=== PATIENT | female | born 1985 | race Two or more races ===

== ENCOUNTER 2025-01-15 05:41 | Day surgery (SDC) | payer OTHER ==
[2025-01-13 12:05] VITALS: BP 133/87
[~2025-01-15] VITALS: Ht 157.5 cm; Wt 63.5 kg
[~2025-01-15 05:41] MED LIST: AMOX1TAB5 PO; CATAFLAM; MAXALT10 MG PO; ZYRTEC10 M3 PO
[2025-01-15] MEDS ORDERED: BUPIVACAINE HCL/PF 0.25% 30ML VIAL InF ONE (11:00)
[2025-01-15] MEDS ORDERED: POVIDONE-IODINE SCRUB 118 ML BOTT TOP ONE (11:00)
[2025-01-15] MEDS ORDERED: CEFAZOLIN SODIUM 1,000 MG VIAL IV ONE (11:00)
[2025-01-15] MEDS ORDERED: POVIDONE-IODINE 118 ML BOTT TOP ONE ×3 (11:00)
[2025-01-15] MEDS ORDERED: CLINDAMYCIN PHOSPHATE 150 MG/ML (900mg) IV ONE (11:00)
[2025-01-15 13:08] LABS: COL ADP 93 SECONDS (56-102); COL EPI 146 SECONDS (82-175)
[2025-01-15] MEDS ORDERED: MORPHINE SULFATE 4 MG/ML VIAL IV ONE ×2 (15:40→16:10)
== END 2025-01-15 17:25 | disposition home or self-care (01) ==
LOC: CIR.AMB 05:41
PROVIDERS: ATTEND Surgery
DX: D05.11 Intraductal carcinoma in situ of right breast (principal); R59.0 Localized enlarged lymph nodes; N65.1 Disproportion of reconstructed breast; D48.62 Neoplasm of uncertain behavior of left breast; N60.82 Other benign mammary dysplasias of left breast; N60.81 Other benign mammary dysplasias of right breast; N60.91 Unspecified benign mammary dysplasia of right breast; Z90.13 Acquired absence of bilateral breasts and nipples

== ENCOUNTER 2025-07-16 06:00 | Day surgery (SDC) | payer OTHER ==
[2025-07-14 10:30] VITALS: BP 114/82
[~2025-07-16] VITALS: Ht 154.9 cm; Wt 63.5 kg
[2025-07-16] MEDS ORDERED: CLINDAMYCIN PHOSPHATE 150 MG/ML (900mg) IV ONE (08:15)
[2025-07-16] MEDS ORDERED: CEFAZOLIN SODIUM 1,000 MG VIAL IJ ONE ×2 (08:15→08:30)
[2025-07-16] MEDS ORDERED: POVIDONE-IODINE 118 ML BOTT TOP ONE (08:30)
[2025-07-16] MEDS ORDERED: POVIDONE-IODINE SCRUB 118 ML BOTT TOP ONE (08:30)
[2025-07-16] MEDS ORDERED: GENTAMICIN SULFATE 40 MG/ML VIAL IR ONE (08:30)
[2025-07-16] MEDS ORDERED: SUGAMMADEX SODIUM 200 MG/2 ML VIAL IV ONE (09:45)
[2025-07-16] MEDS ORDERED: MORPHINE SULFATE 4 MG/ML VIAL IV PRN (10:15)
[2025-07-16] MEDS ORDERED: ONDANSETRON HCL 2 MG/ML VIAL IV PRN (10:15)
== END 2025-07-16 12:00 | disposition home or self-care (01) ==
LOC: CIR.AMB 06:00
PROVIDERS: ATTEND Plastic Surgery
DX: N65.1 Disproportion of reconstructed breast (principal); Z90.13 Acquired absence of bilateral breasts and nipples; D05.11 Intraductal carcinoma in situ of right breast; D48.62 Neoplasm of uncertain behavior of left breast